=== PATIENT | female | born 1995 | race Caucasian/White ===

== ENCOUNTER 2022-02-01 03:25 | Emergency (ER) | payer MEDICAID ==
[~2022-02-01] VITALS: Ht 165.1 cm; Wt 88.5 kg
[2022-02-01 03:55] VITALS: BP 107/63
[2022-02-01] MEDS ORDERED: KETOROLAC 60MG/2ML VIAL IM ONE (04:30)
[2022-02-01] MEDS ORDERED: OFLO5DRO4 RIGHT EAR (04:37)
[2022-02-01] MEDS ORDERED: AMOX-424 MT (04:37)
== END 2022-02-01 06:40 | disposition home or self-care (01) ==
LOC: ER 03:25
DX: H60.11 Cellulitis of right external ear (principal)
CPT/HCPCS: 96372; 99283; J1885